=== PATIENT | male | born 1995 | race Caucasian/White ===

== ENCOUNTER 2017-07-14 18:33 | Emergency (ER) | payer BC ==
[2017-07-14 18:42] VITALS: BP 121/68
[2017-07-14] MEDS ORDERED: ACETAMINOPHEN 325 MG TABLET PO ONE (18:46)
[2017-07-14] MEDS ORDERED: MORPHINE SULFATE 10 MG/ML INJ IV ONE ×2 (19:15→19:55)
--- NOTE | 2017-07-14 19:15 | RADIOLOGY REPORT (SQ) ---
EXAM DESCRIPTION: ANKLE RIGHT COMPLETE COMPLETED DATE/TIME: 07/14/2017 7:03 pm REASON FOR STUDY: JUMPED OFF THE BACK OF A TRUCK COMPARISON: None. NUMBER OF VIEWS: Three views. TECHNIQUE: AP, lateral, and oblique radiographic images acquired of the right ankle. LIMITATIONS: None. FINDINGS: MINERALIZATION: Normal. BONES: There is a comminuted oblique fracture of the distal fibula and fracture of the medial malleol us. Fracture of the posterior malleolus is also identified. JOINTS: No effusions. SOFT TISSUES: There is associated soft tissue swelling. OTHER: No other significant finding. IMPRESSION: Fractures of the distal tibia and fibula as noted above. TECHNICAL DOCUMENTATION: JOB ID: [id number] [employer]- All Rights Reserved
--- NOTE | 2017-07-14 19:31 | ER Document Report ---
ED Extremity Problem, Lower - General Chief Complaint: Ankle Injury Stated Complaint: RIGHT ANKLE PAIN Time Seen by Provider: 07/14/17 18:46 Mode of Arrival: Ambulatory Information source: Patient Notes: This before arrival patient jumped out of a truck and rolled his right ankle. He now has severe right ankle pain. It is worse with movement and better with rest. The pain radiates up his right leg. It is constant and severe. No other injuries. It is sharp. TRAVEL OUTSIDE OF THE [place] IN LAST 30 DAYS: No - Related Data Allergies/Adverse Reactions: No Known Allergies Allergy (Unverified 07/14/17 18:37) Past Medical History - General Information source: Patient - Social History Smoking Status: Unknown if Ever Smoked Frequency of alcohol use: None Drug Abuse: None Family History: Reviewed & Not Pertinent Patient has suicidal ideation: No Patient has homicidal ideation: No Renal/ Medical History: Denies: Hx Peritoneal Dialysis Review of Systems - Review of Systems Constitutional: denies: Chills, Fever Cardiovascular: denies: Chest pain, Dyspnea Respiratory: denies: Cough, Short of breath -: Yes All other systems reviewed and negative Physical Exam - Vital signs Vitals: Temp Pulse Resp BP Pulse Ox 97.2 F 68 16 121/68 100 07/14/17 18:37 07/14/17 18:37 07/14/17 18:37 07/14/17 18:37 07/14/17 18:37 Interpretation: Normal - General General appearance: Appears well, Alert - HEENT Head: Normocephalic, Atraumatic Eyes: Normal Pupils: PERRL - Respiratory Respiratory status: No respiratory distress Chest status: Nontender Breath sounds: Normal Chest palpation: Normal - Cardiovascular Rhythm: Regular Heart sounds: Normal auscultation Murmur: No - Abdominal Inspection: Normal Distension: No distension Bowel sounds: Normal Tenderness: Nontender Organomegaly: No organomegaly - Back Back: Normal, Nontender - Extremities General upper extremity: Normal inspection, Nontender, Normal color, Normal ROM , Normal temperature General lower extremity: Tender, Edema, Normal temperature, Other - Right ankle diffusely swollen with effusion. Patient does have a 1+ dorsalis pedis pulse on the right. Patient can flex and extend all toes. Patient has good capillary refill of all toes on the right foot.. No: Normal ROM, Normal weight bearing, Artur's sign - Neurological Neuro grossly intact: Yes Cognition: Normal Orientation: AAOx4 Lu Coma Scale Eye Opening: Spontaneous [place] Coma Scale Verbal: Oriented [place] Coma Scale Motor: Obeys Commands Lu Coma Scale Total: 15 Speech: Normal Motor strength normal: LUE, RUE, LLE, RLE Sensory: Normal - Psychological Associated symptoms: Normal affect, Normal mood - Skin Skin Temperature: Warm Skin Moisture: Dry Skin Color: Normal Course - Vital Signs Vital signs: Temp Pulse Resp BP Pulse Ox 97.2 F 68 16 121/68 100 07/14/17 18:37 07/14/17 18:37 07/14/17 18:37 07/14/17 18:37 07/14/17 18:37 - Diagnostic Test Radiology reviewed: Image reviewed, Reports reviewed - X-ray shows a trimalleolar fracture of the right ankle. Procedures - Immobilization Right Ankle Time completed: 19:28 Pre-Proc Neuro Vasc Exam: Normal Immobilizer type: Long leg posterior, Sugar tong Performed by: Provider assisted Post-Proc Neuro Vasc Exam: Normal Alignment checked and good: Yes Discharge - Discharge Clinical Impression: Trimalleolar fracture of ankle, closed Qualifiers: Encounter type: initial encounter Laterality: right Qualified Code(s): S82.851A - Displaced trimalleolar fracture of right lower leg, initial encounter for closed fracture Condition: Stable Disposition: HOME, SELF-CARE Instructions: Use of Crutches ([facility]), Oral Narcotic Medication ([facility]), Ice & Elevation ([facility]), Ankle Stirrup Splint ([facility]) Additional Instructions: Please call orthopedics first thing in the morning to arrange follow-up. Prescriptions: Oxycodone HCl/Acetaminophen [Percocet 5-325 mg Tablet] 1 tab PO ASDIR PRN #15 tab PRN Reason: Forms: Return to Work Referrals: ANDERSON CRANDALL DO [ACTIVE STAFF] - Follow up tomorrow (call office first thing in the am)
== END 2017-07-14 20:56 | disposition home or self-care (01) ==
LOC: ER 18:33
DX: S82.851A Displaced trimalleolar fracture of right lower leg, initial encounter for closed fracture (principal); X50.0XXA Overexertion from strenuous movement or load, initial encounter; Y93.39 Activity, other involving climbing, rappelling and jumping off
CPT/HCPCS: 99283; 96374; 73610; 29505; J2270